=== PATIENT | female | born 1970 ===

== ENCOUNTER 2017-03-01 19:38 | Emergency (ER) | payer SELFPAY ==
[2017-03-01 20:03] LABS: Hematocrit 37.9 % (37.0-47.0); Hemoglobin 13.2 gm/dL (12.5-16.0); Mean Cell Volume 94.3 fl (78-100); Mean Corpuscular Hemoglobin 32.8 pg (27-31); Mean Corpuscular Hgb Conc 34.8 g/dl (32-36); Mean Platelet Volume 9.8 fl (6.0-9.5); Neutrophil # 3.2 K/mm3 (1.3-6.0); Neutrophil % 37.9 % (42-75.0); Platelet Count 340 K/mm3 (150-450); Red Blood Count 4.02 M/mm3 (4.2-5.4); Red Cell Distribution Width 11.5 % (11.5-14.0); White Blood Count 8.5 K/mm3 (4.0-10.5)
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
[2017-03-01 20:20] LABS: Albumin * 3.4 gm/dl (3.4-5.0); Anion Gap 12.6 mmol/L (6.8-13.8); Bilirubin, Total 0.1 mg/dL (0.0-1.1); Ca. Corrected For Albumin 8.6 mg/dL (8.4-10.2); Calcium * 8.4 mg/dL (7.9-10.9); Carbon Dioxide 26.9 mmol/L (24-32.6); Potassium 3.5 mmol/L (3.4-4.6); Total Protein 7.2 gm/dL (6.2-8.2); Troponin I 0.054 ng/ml (0.00-0.10)
[2017-03-01] MEDS: NORMAL SALINE 1,000 ML IV ONE (20:27)
[2017-03-01] MEDS: THIAMINE HCL 100 MG in NORMAL SALINE 50 ML IV ONE (20:27)
[2017-03-01 21:04] LABS: Cocaine Ur Negative (NEGATIVE); Urine Barbiturate Negative (NEGATIVE); Urine Benzodiazepines Negative (NEGATIVE); Urine Opiates Negative (NEGATIVE); Urine PCP Negative (NEGATIVE)
[2017-03-01 21:05] LABS: Urine THC Positive (NEGATIVE)
[2017-03-02] MEDS: ACETAMINOPHEN 500 MG TABLET PO ONE (04:40)
[2017-03-02 07:41] VITALS: BP 126/74
== END 2017-03-02 07:30 | disposition home or self-care (01) ==
LOC: ER 19:38
DX: S01.91XA Laceration without foreign body of unspecified part of head, initial encounter (principal); V81.4XXA Person injured while boarding or alighting from railway train or railway vehicle, initial encounter
CPT/HCPCS: 36415; 70450; 80053; 80307; 84484; 85025; 93005; 96365; 99283; G0481